=== PATIENT | male | born 1985 | race Caucasian/White ===

== ENCOUNTER → 2021-10-27 12:15 | Outpatient (BNVA) | payer OTHER, SELFPAY | PROVIDERS: Family Provider Nurse Practitioner Family; PCP Nurse Practitioner Family; Visit Provider Nurse Practitioner Family | DX: M25.572 Pain in left ankle and joints of left foot (principal) | CPT/HCPCS: 73610 ==

== ENCOUNTER → 2022-03-12 14:46 | Outpatient (BNVA) | payer OTHER, SELFPAY | PROVIDERS: PCP Nurse Practitioner Family; Visit Provider Nurse Practitioner | DX: N20.0 Calculus of kidney (principal) | CPT/HCPCS: 74018; 81000 ==

== ENCOUNTER → 2024-05-09 09:13 | Outpatient (BNVA) | payer BC, SELFPAY | PROVIDERS: PCP Nurse Practitioner Family; Visit Provider Nurse Practitioner Psychiatric/Mental Health | DX: Z79.899 Other long term (current) drug therapy (principal) | CPT/HCPCS: 80053; 80061; 83036 ==

== ENCOUNTER 2024-09-04 14:50 | Emergency (ER) | payer BC, MEDICAID, SELFPAY ==
[2024-09-04 14:55] VITALS: BP 119/83; PULSE 74; RESP 17; TEMP 36.8; O2SAT 98; BMI 27.9
[2024-09-04 16:03] LABS: Bilirubin Urine Negative (Negative); Blood Urine Negative (Negative); Glucose Urine UA Negative (Normal); Ketones Urine Trace (Negative); Leukocyte Esterase Urine Trace (Negative); Nitrate Urine Negative (Negative); Protein Urine 1+ (Negative); Specific Gravity, Urine 1.026 (1.005-1.030); Urine Appearance Clear (CLEAR); Urine Color Dark Yellow (Yellow); pH Urine 5.5 (5-7)
[2024-09-04 16:05] LABS: Add Urine Microscopic? YES
[2024-09-04 16:11] LABS: Basophils # 0.1 10^3/uL (0.0-0.1); Basophils % 0.8 %; Eosinophils # 0.2 10^3/uL (0.0-0.8); Eosinophils % 1.4 %; Hematocrit 46.5 % (37-53); Mean Corpuscular HGB Conc 34.6 g/dL (30-55); Mean Corpuscular Volume 92.4 fl (82-101); Mean Platelet Volume 9.5 fL (7.4-10.4); Monocytes # 0.7 10^3/uL (0.2-0.9); Monocytes % 6.3 %; Neutrophils # 7.72 10^3/uL (1.8-7.7); Neutrophils % 72.1 %; Nucleated Red Blood Cells % 0 %; Platelet Count 274 10^3/cmm (157-399); Red Blood Count 5.03 10^6/uL (3.85-5.65); Red Cell Distribution Width 11.9 % (12.1-15.1); White Blood Count 10.71 10^3/uL (3.29-11.43)
[2024-09-04 16:29] LABS: Alanine Aminotransferase 10 U/L (0-41); Albumin Level 4.4 g/dL (3.5-5.2); Alkaline Phosphatase 68 U/L (40-130); Aspartate Amino Transferase 13 U/L (0-40); Blood Urea Nitrogen 11 mg/dL (6-20); Calcium 9.1 mg/dL (8.5-10.5); Carbon Dioxide 28 mmol/L (22-29); Chloride 103 mmol/L (98-107); Creatinine Clr Calc Pharmacy 150.0939; Globulin 2.6 g/dL (1.3-4.6); Glomerular Filtration Rate 108.8 mL/min (90-130); Glucose 97 mg/dL (65-115); Lipase 23 U/L (13-60); Osmolality Calculated 289 mOsm/kg (285-295); Sodium 140 mmol/L (136-145); Total Bilirubin 0.5 mg/dL (0.15-1.2)
[2024-09-04 16:39] LABS: Hyaline Casts Urine 0-4 /lpf; RBC Urine 0-4 /hpf (0-2); Squamous Epithelial Cell Urine 0-4 /hpf (0-5); UA Manual Slide Review YES; UA Slide Review UA Slide Review Perf
[2024-09-04 16:44] VITALS: BP 152/89; PULSE 65; O2SAT 98
--- NOTE | 2024-09-04 16:49 | ED_ITS ---
HPI - Abdominal Pain 2 General: Chief Complaint: Abdominal Pain Stated Complaint: left side pain Time Seen by Provider: 09/04/24 16:44 History of Present Illness: 39-year-old male presents emergency room complaining of left flank pain. Is been going on for couple of days. He has had some urgency with urination no jesse hematuria seen in clinic he had no hematuria on the urine sample done at the the clinic. Patient has had episodes of nephrolithiasis in the past and he thinks this feels similar to that. He did have 1 episode in the past where he had to have a stent placed to deal with nephrolithiasis. He denies any fever sweats or chills. Associated Symptoms: Denies chills, dysuria and fever(s) Related Data Previous Rx's Medication Instructions Recorded aripiprazole 2 mg tablet 2 mg PO .q hs #30 tabs 07/04/24 fluoxetine 20 mg capsule 60 mg (3 x 20 mg) PO DAILY #90 caps 07/04/24 ciprofloxacin HCl 250 mg tablet 250 mg PO BID #14 tabs 09/04/24 (Cipro) hydrocodone 5 mg-acetaminophen 325 1 tab PO Q6H PRN pain #7 tabs 09/04/24 mg tablet Allergies Allergy/AdvReac Type Severity Reaction Status Date / Time No Known Allergies Allergy Verified 09/04/24 13:57 Review of Systems 2 Const: Denies: fever(s) or chills Card: Denies: chest pain Resp: Denies: dyspnea GI: Denies: abdominal pain : Reports: urinary frequency and urinary urgency; Denies: dysuria Musc: Denies: neck pain or back pain Skin/Breast: Denies: rash PFS ED 2 PFSH: Medical History (Updated 09/04/24 @ 18:17 by Leonid Esquivel DO) Cannabis use disorder, moderate, dependence Alcohol use disorder, moderate, dependence Psychiatric care Kidney stones Left ankle strain Social History Smoking and tobacco/nicotine status: current every day tobacco/nicotine user Quit status (tobacco/nicotine): not considering quitting Second hand smoke exposure: No Alcohol intake: current Alcohol intake frequency: few times a month Substance/Drug Use: current Substance/Drug use frequency: daily Physical Exam 2 Const: GENERAL APPEARANCE: cooperative ORIENTATION/CONSCIOUSNESS: Yes awake, Yes oriented to person, Yes oriented to place and Yes oriented to time HENMT: COMMON NORMALS: normocephalic, atraumatic and hearing grossly normal bilaterally HEAD & SCALP: normocephalic and atraumatic Resp: COMMON NORMALS: normal respiratory effort, No retractions, No use of accessory muscles and clear to auscultation bilaterally AUSCULTATION: clear to auscultation bilaterally Cardio: COMMON NORMALS: regular rate, regular rhythm and No murmurs present (Cardio) RATE: regular rate RHYTHM: regular rhythm GI: COMMON NORMALS: Soft to palpation and No hepatosplenomegaly present A USCULTATION: Yes normoactive bowel sounds PALPATION: Yes Soft to palpation, No Tenderness to palpation present (GI), No Guarding due to palpation present (GI) and Yes No hepatosplenomegaly present : BLADDER/KIDNEY EXAM: Yes CVA tenderness Back/Pelvis: GENERAL BACK: Yes CVA tenderness CVA tenderness: left Extremity: COMMON NORMALS: normal to inspection, capillary refill normal, no clubbing, cyanosis or edema, no calf tenderness and no pedal edema Neuro: SENSORIUM/ORIENTATION: Yes oriented to person, Yes oriented to place and Yes oriented to time Skin: COMMON NORMALS: no rashes or lesions noted GENERAL SKIN EXAM: no rashes or lesions noted Course 2 Vital Signs: Vital signs: Vital Signs Temperature 98.2 F 09/04/24 14:55 Pulse Rate 65 09/04/24 18:26 Respiratory Rate 17 09/04/24 14:55 Blood Pressure 144/80 09/04/24 18:26 Pulse Oximetry 98 09/04/24 18:26 Oxygen Delivery Me thod Room Air 09/04/24 17:39 MDM - Abdominal Pain Medical Decision Making CT reviewed there is a question of either having just passed a stone or some ureteritis. He does not have significant leukocytosis. He does have some glucose urea with trace leukocyte Estrace. Will start him on the ciprofloxacin. Also give him hydrocodone for pain and recommend that he follows up with urology as soon as he is able. There is a renal pelvis stone that may also be contributing to some of the discomfort. Lab Data 09/04/24 16:06 09/04/24 16:06 Labs/Radiology: Radiology Impressions Abdomen/Pelvis CT 09/04/24 16:53 IMPRESSION: 1. 9 x 7 mm stone in the left renal pelvis associated with upper pole caliectasis suggesting partial obstruction. No significant ureteral dilation or ureteral stones. 2. Mildly patulous distal left ureter with a questionably thickened wall which may be due to ureteritis, recent passage of a stone, or less likely neoplasm. Consider nonemergent follow-up CT urography. Laboratory Results WBC 10.71 10^3/uL (3.29-11.43) 09/04/24 16:06 RBC 5.03 10^6/uL (3.85-5.65) 09/04/24 16:06 Hgb 16.10 g/dL (11.27-16.99) 09/04/24 16:06 Hct 46.5 % (37-53) 09/04/24 16:06 MCV 92.4 fl (82-101) 09/04/24 16:06 MCH 32.0 pg (27-33) 09/04/24 16:06 MCHC 34.6 g/dL (30-55) 09/04/24 16:06 RDW 11.9 % (12.1-15.1) L 09/04/24 16:06 Plt Count 274 10^3/cmm (157-399) 09/04/24 16:06 MPV 9.5 fL (7.4-10.4) 09/04/24 16:06 Neut % (Auto) 72.1 % 09/04/24 16:06 Lymph % (Auto) 19.0 % 09/04/24 16:06 Swain % (Auto) 6.3 % 09/04/24 16:06 Eos % (Auto) 1.4 % 09/04/24 16:06 Baso % (Auto) 0.8 % 09/04/24 16:06 Neut # (Auto) 7.72 10^3/uL (1.8-7.7) H 09/04/24 16:06 Lymph # (Auto) 2.0 10^3/uL (0.8-4.8) 09/04/24 16:06 Swain # (Auto) 0.7 10^3/uL (0.2-0.9) 09/04/24 16:06 Eos # (Auto) 0.2 10^3/uL (0.0-0.8) 09/04/24 16:06 Baso # (Auto) 0.1 10^3/uL (0.0-0.1) 09/04/24 16:06 Nucleated RBC % (auto) 0 % 09/04/24 16:06 Nucleated RBCs # 0.0 /100WBC 09/04/24 16:06 Sodium 140 mmol/L (136-145) 09/04/24 16:06 Potassium 4.0 mmol/L (3.5-5.1) 09/04/24 16:06 Chloride 103 mmol/L (98-107) 09/04/24 16:06 Carbon Dioxide 28 mmol/L (22-29) 09/04/24 16:06 Anion Gap 13.0 (5-19) 09/04/24 16:06 BUN 11 mg/dL (6-20) 09/04/24 16:06 Creatinine 0.8 mg/dL (0.7-1.2) 09/04/24 16:06 GFR Calculation 108.8 mL/min (90-130) 09/04/24 16:06 Glucose 97 mg/dL (65-115) 09/04/24 16:06 Calculated Osmolality 289 mOsm/kg (285-295) 09/04/24 16:06 Calcium 9.1 mg/dL (8.5-10.5) 09/04/24 16:06 Total Bilirubin 0.5 mg/dL (0.15-1.2) 09/04/24 16:06 AST 13 U/L (0-40) 09/04/24 16:06 ALT 10 U/L (0-41) 09/04/24 16:06 Alkaline Phosphatase 68 U/L (40-130) 09/04/24 16:06 Total Protein 7.0 g/dL (6.6-8.7) 09/04/24 16:06 Albumin 4.4 g/dL (3.5-5.2) 09/04/24 16:06 Globulin 2.6 g/dL (1.3-4.6) 09/04/24 16:06 Lipase 23 U/L (13-60) 09/04/24 16:06 Urine Color Dark yellow (Yellow) A 09/04/24 15:03 Urine Appearance Clear (CLEAR) 09/04/24 15:03 Urine pH 5.5 (5-7) 09/04/24 15:03 Ur Specific Bath 1.026 (1.005-1.030) 09/04/24 15:03 Urine Protein 1+ (Negative) A 09/04/24 15:03 Urine Glucose (UA) Negative (Normal) 09/04/24 15:03 Urine Ketones Trace (Negative) 09/04/24 15:03 Urine Blood Negative (Negative) 09/04/24 15:03 Urine Nitrate Negative (Negative) 09/04/24 15:03 Urine Bilirubin Negative (Negative) 09/04/24 15:03 Urine Urobilinogen 1.0 mg/dL (Negative) 09/04/24 15:03 Ur Leukocyte Esterase Trace (Negative) A 09/04/24 15:03 Urine RBC 0-4 /hpf (0-2) H 09/04/24 15:03 Urine WBC 6-10 /hpf (0-5) 09/04/24 15:03 Ur Squamous Epith Cells 0-4 /hpf (0-5) H 09/04/24 15:03 Calcium Oxalate Crystal 10-15 /hpf H 09/04/24 15:03 Amorphous Sediment Not Reportable 09/04/24 15:03 Urine Bacteria None /hpf (NONE) 09/04/24 15:03 Hyaline Casts 0-4 /lpf H 09/04/24 15:03 All radiology interpretation(s) finalized by discharge Discharge Plan Discharge Patient Disposition: Home Clinical Impression: Cystitis, Ureteritis Condition: Stable Prescriptions: New ciprofloxacin HCl [Cipro] 250 mg tablet 250 mg PO BID Qty: 14 0RF hydrocodone-acetaminophen 5-325 mg tablet 1 tab PO Q6H PRN (Reason: pain) Qty: 7 0RF No Action fluoxetine 20 mg capsule 60 mg PO DAILY Qty: 90 2RF Rx Instructions: Take three capsules by mouth every morning; stop 40 mg dose aripiprazole 2 mg tablet 2 mg PO .q hs Qty: 30 2RF Rx Instructions: Take one tablet daily at bedtime Discharge Orders: Discharge ED (Routine); Ordered 09/04/24 Ordered By: Leonid Esquivel Referrals: Tong Chen, HEALTH AND WELLNESS ADVISOR [Primary Care Provider] - Discharge Diet: Usual diet Discharge Activity: Increase activity as tolerated Patient Instructions: Opioid Safety, Pain Management Activity Restrictions/Additional Instructions: Thank you for choosing [facility] for your healthcare needs today. It is very important that you follow up as instructed or that you return to the Emergency Department should you have concerns or if your condition changes or worsens in any way. You were seen in the emergency room for complaints of flank pain. On the CT there is some swelling of the ureter it appears you may have passed the stone or there may be a mild infection her urine did show signs of infection but did not show significant amount of blood. We started you on antibiotics give you pain medication. You should follow-up with your urologist within the next 7 to 10 days to reevaluate this if you continue to have pain you may need further evaluation by urologist. Coding Level of Care Code ED [employer] for Kandice Sue
--- NOTE | 2024-09-04 16:53 | CTR_ITS ---
PROCEDURE INFORMATION: Exam: CT Abdomen And Pelvis Without Contrast Exam date and time: 09/04/2024 5:17 PM Age: 39 years old Clinical indication: Abdominal pain; Flank; Left; Additional info: Flank pain TECHNIQUE: Imaging protocol: Computed tomography of the abdomen and pelvis without contrast. Radiation optimization: All CT scans at this facility use at least one of these dose optimization techniques: automated exposure control; mA and/or kV adjustment per patient size (includes targeted exams where dose is matched to clinical indication); or iterative reconstruction. COMPARISON: CR XR KUB [id number] 03/12/2022 3:08 PM RADIATION DOSE METRICS: Total DLP (mGy-cm): 772.82 FINDINGS: Lungs: Lung bases are clear. Liver: The liver is normal. Gallbladder and biliary ducts: The gallbladder is normal. There is no biliary dilation. Pancreas: The pancreas is unremarkable. Spleen: The spleen is unremarkable. Adrenal glands: The adrenal glands are unremarkable. Kidneys and ureters: There is a 9 x 7 mm stone in the left renal pelvis. There is a 5 x 3 mm stone in left lower pole collecting system. There is mild asymmetric enlargement of the left kidney relative to the right kidney. There is no perinephric edema. There is mild upper pole caliectasis on the left. The left ureter is not significantly. Distally the left ureter is mildly patulous. Urothelial thickening in the distal left ureter is suspected but cannot be confirmed in the absence of IV contrast. No ureteral stones. The right kidney and ureter are unremarkable. Stomach and bowel: The stomach is unremarkable. The small bowel is nondilated. The colon is unremarkable. Appendix: The appendix is normal. Intraperitoneal space: There is no free air or significant intraperitoneal free fluid. Vasculature: The aorta is unremarkable. There is no aneurysm. Lymph nodes: There is no lymphadenopathy in the retroperitoneum, mesentery, pelvis or inguinal regions. Urinary bladder: The urinary bladder is nondistended, limiting assessment of wall thickness. Reproductive: The prostate and seminal vesicles are unremarkable. Bones/joints: The pelvis and hips are unremarkable. Soft tissues: The abdominal wall is intact. CT/CT kidney stone 62330 IMPRESSION: 1. 9 x 7 mm stone in the left renal pelvis associated with upper pole caliectasis suggesting partial obstruction. No significant ureteral dilation or ureteral stones. 2. Mildly patulous distal left ureter with a questionably thickened wall which may be due to ureteritis, recent passage of a stone, or less likely neoplasm. Consider nonemergent follow-up CT urography.
[2024-09-04 17:39] VITALS: BP 144/80; PULSE 65; O2SAT 98
[2024-09-04 18:26] VITALS: BP 144/80; PULSE 65; O2SAT 98
== END 2024-09-04 18:28 | disposition home or self-care (01) ==
PROVIDERS: Emergency Medicine; Emergency Provider Family Medicine; PCP Nurse Practitioner Family
DX: N30.90 Cystitis, unspecified without hematuria (principal); N28.89 Other specified disorders of kidney and ureter; Z72.0 Tobacco use
CPT/HCPCS: 74176; 80053; 81001; 83690; 85025; 99284

== ENCOUNTER 2025-05-14 05:40 | Day surgery (SDC) | payer BC, MEDICAID, SELFPAY ==
[2025-05-14] VITALS (14 sets, daily range): BP systolic 123–155; BP diastolic 77–86; PULSE 85–116; RESP 10–29; TEMP 36.2–36.7; O2SAT 91–99; BMI 29.5
--- NOTE | 2025-05-14 06:40 | W.PM.OPSUD ---
Surgery/Procedure H&P Update DATE OF PROCEDURE: May 14, 2025 DATE H&P PERFORMED: 04/18/25 H&P UPDATE INFORMATION: I have reviewed H&P completed within last 30 days, I have examined patient prior to procedure, No changes to prior documentation, H&P is in [facility] EMR on date indicated and Risks and benefits of the procedure reviewed PREOP DIAGNOSIS: Right inguinal hernia PLANNED PROCEDURE: Operation Date: 05/14/25 07:00 Proposed Procedures p Laparoscopic POSSIBLE OPEN RIGHT Inguinal Hernia Repair w/Mesh 23685 K40.90(Right) - Félix Conrad MD
--- NOTE | 2025-05-14 06:49 | ANES.PREANE2 ---
Pre-Anesthetic Assessment Height/Weight: Height 1.8 m Weight 96.162 kg Temp Pulse Resp BP Pulse Ox O2 Del Method 98.0 F 85 18 128/83 97 Room Air 05/14/25 06:07 05/14/25 06:07 05/14/25 06:07 05/14/25 06:07 05/14/25 06:07 05/14/25 06:07 Preop Diagnosis: Right inguinal hernia Operation Date: 05/14/25 07:00 Proposed Procedures p Laparoscopic POSSIBLE OPEN RIGHT Inguinal Hernia Repair w/Mesh 12310 K40.90(Right) - Félix Conrda MD Familial anesthetic complications: None Was Beta Jc taken within 24 hours: N/A Was Clonidine taken within 24 hours: N/A Last intake: Intake Last Liquid Date 05/14/25 Last Liquid Time 03:00 Last Solid Date 05/13/25 Last Solid Time 21:00 Social Alcohol and Tobacco Exam alert, oriented x 3, clear to auscultation bilaterally and regular rate & rhythm Airway Dentition: chipped Anesthetic Plan ASA status: 1 Anesthesia: General Risk of > 500 ml blood loss (7ml/kg in children): No Medications/Allergies Home Medications ?Medication ?Instructions ?Recorded ?Confirmed ?Last Taken ?Type aripiprazole 2 mg tablet 2 mg PO .q hs #30 tabs 12/18/24 05/10/25 2 Months Ago Rx ~03/14/25 fluoxetine 20 mg capsule 60 mg (3 x 20 mg) PO DAILY #90 caps 12/18/24 05/10/25 2 Months Ago Rx ~03/14/25 Allergies Allergy/AdvReac Type Severity Reaction Status Date / Time No Known Allergies Allergy Verified 05/10/25 12:16 Current Medications Generic Name Dose Route Start Last Admin Trade Name Freq PRN Reason Stop Dose Admin Sodium Chloride 1,000 mls @ 30 mls/hr 05/14/25 06:00 05/14/25 06:33 Sodium Chloride 0.9% IV 05/15/25 05:59 30 mls/hr .Q24H DANTE Administration PFSH Anesthesia Medical History (Updated 04/18/25 @ 11:37 by Félix Conrad MD) Cannabis use disorder, moderate, dependence Alcohol use disorder, moderate, dependence Psychiatric care Kidney stones Left ankle strain Social History (Reviewed 04/18/25 @ 11:01 by SAMMI Singleton Smoking and tobacco/nicotine status: current every day tobacco/nicotine user Quit status (tobacco/nicotine): not considering quitting Second hand smoke exposure: No Alcohol intake: current Alcohol intake frequency: few times a month Substance/Drug Use: current Substance/Drug use frequency: daily
[2025-05-14] MEDS: ceFAZolin 2,000 mg SDV 2000 MG IVP (07:07)
[2025-05-14] MEDS: lidocaine-epi 1% 20 mL INJ 10 ML INJECTION (07:57)
[2025-05-14] MEDS: BUPivacaine 0.25% INJ 30 mL 10 ML INJECTION (07:57)
--- NOTE | 2025-05-14 08:34 | P.OP_ITS ---
Operative Report Date of procedure: May 14, 2025 Pre-op diagnosis: Right inguinal hernia Post-op diagnosis: Indirect right inguinal hernia Post-op findings: There was a small right inguinal hernia, small lipoma of the cord otherwise normal right groin anatomy Procedure done: Laparoscopic right inguinal hernia repair with mesh Implants: Bard medium 3D max mesh Specimens removed/disposition: None Surgeon: Félix Conrad MD [employer] Tech: DEAN OR STaff Estimated blood loss: 10 Complications: none Brief History: This is a 39-year-old male who presented to my office with right groin pain, p hysical examination showed a small right inguinal hernia. Procedure: Patient was brought into the OR, he was placed in a supine position. General anesthesia was given. The abdomen groin was prepped and draped in the usual sterile fashion. A timeout was conducted. I made a 2 cm infraumbilical incision, the incision was deepened until the right anterior rectus sheath was identified. The anterior rectus sheath was opened with electrocautery, the muscle was retracted laterally to expose the retrorectus space. I then advanced a balloon dilator into the retrorectus space and into the pelvis taking care of not using excessive force, the dilator was advanced to the level of the pubic bone and inflated under direct visualization. The preperitoneal space was developed, anatomical structures were identified. The balloon was removed and replaced with a 12 mm trocar. Insufflation was started at 10 mmHg. Initial laparoscopy shows no evidence of active bleeding in the preperitoneal space. Under direct visualization 2 additional 5 mm trocars were placed in the suprapubic and infraumbilical position. I then proceeded to bluntly dissect the preperitoneal space, I was able to visualize the pubic bone and dissected 2 cm lower to this level to allow for proper mesh placement. I was able to visualize the femoral vein and no evidence of right femoral hernia was noted, there was also normal direct inguinal hernia. I then proceeded to develop the lateral space of Borgos I did this bluntly until the psoas muscle was visible. At this point I proceeded to dissect the cord structures, a small indirect sac was identified and dissected from the cord structures, an area about 5 cm from the internal ring was cleared out to ensure no additional inguinal hernia was noted. I then proceeded to produce a small lipoma of the cord. Cord structures appeared healthy and were left undisturbed. I then proceeded to place medium size right sided 3D max mesh into the space. The mesh was laying flat and covering the direct indirect and femoral spaces. I then desufflated the space under direct visualization making sure that the mesh was laying in proper position. The trocars were then removed. Hemostasis was verified. The anterior rectus sheath was closed with #0 Vicryl under direct visualization. The subcutaneous tissue was closed with #3-0 Vicryl and the skin was closed with Monocryl. At the end of the procedure all counts were correct the patient tolerated well the procedure was transferred to the PACU in stable condition.
--- NOTE | 2025-05-14 10:10 | ANE.PACU2 ---
Inpatient post-anesthesia follow up: Airway intact: Yes Vital signs: Temperature 97.9 F Pulse Rate 93 Respiratory Rate 18 Blood Pressure 123/83 Pulse Oximetry 93 Oxygen Delivery Me thod Room Air Oxygen Flow Rate 2 Fraction of Inspir ed Oxygen Hydration adequate: Yes Nausea and vomiting: No Pain level: 1 Mental status: Baseline
--- NOTE | 2025-05-14 10:12 | PC.NURSE ---
Pt offered educational materials on new prescriptions post Sx. Pt refused.
== END 2025-05-14 10:10 | disposition home or self-care (01) ==
PROVIDERS: PCP Nurse Practitioner Family; Visit Provider Surgery
PROC: (CPT 49650; principal; 2025-05-14 07:00)
DX: K40.90 Unilateral inguinal hernia, without obstruction or gangrene, not specified as recurrent (principal); F12.90 Cannabis use, unspecified, uncomplicated; F17.200 Nicotine dependence, unspecified, uncomplicated
CPT/HCPCS: 49650; 51702; A7003; C1781; J0690; J1100; J2250; J2371; J2405; J2704; J3010; J3490; J7030; J7611; J9999

== ENCOUNTER 2025-06-08 08:31 | Emergency (ER) | payer BC, MEDICAID, SELFPAY ==
--- OUTSIDE RECORDS SUMMARY | 2025-06-01 13:40 | XMS_ITS | Encounter Summary ---
Author Organization [facility] Address [address] [place] [address] Care Team Providers Care Watch Electrician Name Role Phone Unavailable Primary Care Provider Unavailabl e Reason for Referral * Eval and Treat (Routine) - Authorized Specialty Diagnoses / Procedures Referred By Kenzie dixon Referred To Contact Urology Diagnoses Left nephrolithiasis Procedures CT OFFICE/OUTPATIENT ESTABLISHED MOD MDM [address] OFFICE/OUTPATIENT NEW MODERATE MDM 45 MINUTES Elin Mallory FNP [address] [facility] [place] [phone] Phone: tel: fax: [facility]rology [address] [place] [phone] Phone: tel: fax: Referral ID Status Reason Start Date Expiration Date V isits Requested Visits Authorized [id number] Authorized 06/01/2025 06/01/2026 1 1 Reason for Visit * Reason Comments Follow Up Referral for Urology Encounter Details Date Type Department Care Team (Latest Contact Info) Description 06/01/2025 1:40 PM CDT Office Visit [facility] Family Medicine Cathryn Carbajal [address] [facility] [address] [facility] [place] [phone] Elin Mallory FNP [address] [facility] [place] [id number] Left nephrolithiasis (Primary Dx); Dental abscess Social History Tobacco Use Types Packs/Day Years Used Date Smoking Tobacco: Every Day Cigarettes Smokeless Tobacco: Former Tobacco Cessation:Ready to Q uit: No; Counseling Given: Yes Alcohol Use Standard Drinks/Week Comments No 0 (1 standard drink = 0.6 oz pur e alcohol) Sex and Gender Information Value Date Recorded Sex Assigned at Not on file Legal Sex Male 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 Gender Identity Not on file Sexual Orientation Not on file documented as of this encounter Last Filed Vital Signs Vital Sign Reading Time Taken Comments Blood Pressure 118/70 06/01/2025 1:41 PM CDT Pulse 122 06/01/2025 1:41 PM CDT Temperature 36.1 C (96.9 F) 06/01/2025 1:41 PM CDT Respiratory Rate 20 06/01/2025 1:41 PM CDT Oxygen Saturation 97% 06/01/2025 1:41 PM CDT Inhaled Oxygen Concentration - - Weight 94 kg (207 lb 3.2 oz) 06/01/2025 1:41 PM CDT Height 175.3 cm (5' 9 ) 06/01/2025 1:41 PM CDT Body Mass Index 30.6 06/01/2025 1:41 PM CDT documented in this encounter Progress Notes * Elin Mallory FNP - 06/01/2025 2:09 PM CDT HISTORY OF PRESENT ILLNESS: Chief Complaint Patient presents with Follow Up Referral for Urology Subjective History of Present Illness The patient is a 39-year-old male who presents to the clinic for a referral request. He reports experiencing pain, which he attributes to a kidney stone that has not yet passed. He expresses concern about the possibility of needing another lithotripsy procedure. He continues to experience left flank pain and suspects the presence of sand-like grains due to a sensation of tension inthe area. He reports no presence of blood in his urine. Additionally, he mentions an abscess located under his lip, which he has been manually draining. Herecalls a previous episode of severe facial swelling, which he believes was due to a sinus infection. The abscess has persisted since then, and he has been attempting to drain it himself. Occupation: Works in care management Living Condition: Lives with his grandmother PAST SURGICAL HISTORY: - Lithotripsy (date not specified) REVIEW OF SYSTEMS Review of Systems Constitutional: Negative for activity change, appetite change, fatigue and fever. HENT: Positive for dental problem. Gastrointestinal: Positive for abdominal pain. Negative for constipation, diarrhea, nausea and vomiting. Genitourinary: Positive for flank pain. Negative for decreased urine volume, difficulty urinating, dysuria, frequency, hematuria and urgency. Musculoskeletal: Negative for arthralgias and myalgias. Skin: Negative for color change. Neurological: Negative for dizziness, weakness, light-headedness and headaches. Objective PHYSICAL EXAM BP 118/70 Pulse (!) 122 Temp 96.9 ??F (36.1 ??C) (Temporal) Resp 20 Ht 5' 9 (1.753 m) Wt94 kg (207 lb 3.2 oz) SpO2 97% BMI 30.60 kg/m?? Physical Exam Vitals reviewed. Constitutional: General: He is not in acute distress. Appearance: Normal appearance. HENT: Head: Normocephalic and atraumatic. Right Ear: External ear normal. Left Ear: External ear normal. Mouth/Throat: Dentition: Dental abscesses present. Eyes: Conjunctiva/sclera: Conjunctivae normal. Pulmonary: Effort: Pulmonary effort is normal. Abdominal: Tenderness: There is left CVA tenderness. Musculoskeletal: Cervical back: Neck supple. Skin: General: Skin is warm. Findings: No rash. Neurological: Mental Status: He is alert and oriented to person, place, and time. Psychiatric: Behavior: Behavior normal. Results ASSESSMENT and PLAN: Orders Placed This Encounter Referral to [facility] [place] - First Available cephALEXin (KEFLEX) 500 mg capsule Assessment & Plan 1. Nephrolithiasis: Persistent. - Referral to a urologist in [place] will be arranged, with [place] as an alternative option. - Increase fluid intake. 2. Oral abscess: Persistent. - Warm compresses recommended to help drain the abscess naturally. - Prescription for Keflex (cephalexin) will be provided. - Monitor for any allergic reactions. - Have Benadryl on hand in case of a rash or other allergic reaction. Follow-up - Referral to a urologist in [place]. LAYNE Richardson, 06/01/2025 2:22 PM The author of this note, patient (or authorized vendor representatives), and all other persons present consent to the audio recording of this visit for charting documentation purposes. This note was automatically generated by a Generative AI technology ([employer]), reviewed, edited, and finalized by LAYNE Richardson. documented in this encounter Plan of Treatment Upcoming Encounters Date Type Department Care Team (Late st Contact Info) Description 07/18/2025 3:00 PM CDT Office Visit [facility]rology [place] [address] [facility] [address] [place] [address] Radha Frank NP [address] [place] [phone] Scheduled Referrals Name Type Priority Associated Diagnoses Orde r Schedule AMB REFERRAL TO UROLOGY Outpatient Referral Routine Left nephrolithiasis Ordered: 06/01/2025 documented as of this encounter Visit Diagnoses Diagnosis Left nephrolithiasis- Primary Dental abscess Periapical abscess without sinus documented in this encounter Additional Health Concerns Assessment Noted Time PHQ-9 Depression Total Score: 2 10/17/19 25 4:16 PM LEAD ACCOUNTANT documented as of this encounter
[2025-06-08 08:33] VITALS: BP 120/75; PULSE 77; TEMP 36.9; O2SAT 97; BMI 32.4
--- OUTSIDE RECORDS SUMMARY | 2025-06-08 08:42 | XMS_ITS | Encounter Summary ---
Author Organization [facility] Address [address] Care Team Providers Care Network Project Manager Name Role Phone Unavailable Primary Care Provider Unavailabl e Encounter Details Date Type Department Care Team (Latest Contact Info) Description 09/05/1999 Outpatient Historical [facility] Family Medicine- Cathryn [address] [place] [phone] Susan Burk NO ADDRESS ON FILE Unspecified otitis media (Primary Dx); Streptococcal sore throat; Acute sinusitis, unspecified Social History Tobacco Use Types Packs/Day Years Used Date Smoking Tobacco: Never Assessed Sex and Gender Information Value Date Recorded Sex Assigned at Not on file 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
--- OUTSIDE RECORDS SUMMARY | 2025-06-08 08:43 | XMS_ITS | Encounter Summary ---
Author Organization [facility] Address [address] [place] [facility] [place] [address] Care Team Providers Care Kettle Room Helper Name Role Phone Unavailable Primary Care Provider Unavailabl e Encounter Details Date Type Department Care Team (Latest Contact Info) Description 03/21/2003 Outpatient Historical [facility] Family Medicine- Cathryn Carb[address] [place] [phone] Jan Buenrostro, DO NO ADDRESS ON FILE FOREIGN BODY IN EAR (Primary Dx); IMPACTED CERUMEN; INFEC OTITIS EXTERNA NOS Social History Tobacco Use Types Packs/Day Years Used Date Smoking Tobacco: Never Assessed Sex and Gender Information Value Date Recorded Sex Assigned at Not on file 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
--- OUTSIDE RECORDS SUMMARY | 2025-06-08 08:43 | XMS_ITS | Encounter Summary ---
Author Organization [facility] Address [address] [facility] [place] [address] Care Team Providers Care Leaf Conditioner Name Role Phone Unavailable Primary Care Provider Unavailabl e Encounter Details Date Type Department Care Team (Latest Contact Info) Description 10/24/1999 Outpatient Historical [facility] Family Medicine- Cathryn Carb[address] [place] [phone] Susan Burk NO ADDRESS ON FILE Sprain of wrist, unspecified site (Primary Dx) Social History Tobacco Use Types Packs/Day Years Used Date Smoking Tobacco: Never Assessed Sex and Gender Information Value Date Recorded Sex Assigned at Not on file Legal Sex Male 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
--- OUTSIDE RECORDS SUMMARY | 2025-06-08 08:43 | XMS_ITS | Encounter Summary ---
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
--- OUTSIDE RECORDS SUMMARY | 2025-06-08 08:43 | XMS_ITS | Encounter Summary ---
Author Organization [facility] Address [address] [place] [facility] [place] [facility] [place] [address] Care Team Providers Care Bank Manager Name Role Phone Unavailable Primary Care Provider Unavailabl e Encounter Details Date Type Department Care Team (Latest Contact Info) Description 03/16/2007 Outpatient Historical [facility] Family Medicine- Cathryn Carb[address] [place] [phone] Krysten Zepeda NP NO ADDRESS ON FILE Acute Sinusitis, Unspecified (Primary Dx); Headache; Diarrhea Social History Tobacco Use Types Packs/Day Years Used Date Smoking Tobacco: Never Assessed Sex and Gender Information Value Date Recorded Sex Assigned at Not on file 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
--- OUTSIDE RECORDS SUMMARY | 2025-06-08 08:43 | XMS_ITS | Encounter Summary ---
Author Organization [facility] Address [address] [place] [address] Care Team Providers Care Test Designer Name Role Phone Unavailable Primary Care Provider Unavailabl e Encounter Details Date Type Department Care Team (Latest Contact Info) Description 05/06/2000 Outpatient Historical [facility] [address] [place] [phone] Susan Burk NO ADDRESS ON FILE Dermatitis due to plant (Primary Dx); Acute sinusitis, unspecified; Dysfunct eustachian tube Social History Tobacco Use Types Packs/Day Years Used Date Smoking Tobacco: Never Assessed Sex and Gender Information Value Date Recorded Sex Assigned at Not on file 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
--- OUTSIDE RECORDS SUMMARY | 2025-06-08 08:43 | XMS_ITS | Encounter Summary ---
Author Organization [facility] Address [address] [place] [facility] [place] [phone] Care Team Providers Care Grain Picker Name Role Phone Unavailable Primary Care Provider Unavailabl e Encounter Details Date Type Department Care Team (Latest Contact Info) Description 01/14/2004 Outpatient Historical [facility] Family Medicine- Cathryn Carb[address] [place] [phone] Kristin Nogueira MD NO ADDRESS ON FILE STREP SORE THROAT (Primary Dx); ATTN DEFICIT W HYPERACT Social History Tobacco Use Types Packs/Day Years Used Date Smoking Tobacco: Never Assessed Sex and Gender Information Value Date Recorded Sex Assigned at Not on file 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
--- OUTSIDE RECORDS SUMMARY | 2025-06-08 08:43 | XMS_ITS | Encounter Summary ---
Author Organization [facility] Address [address] [facility] [place] [address] Care Team Providers Care Middle School Science Teacher Name Role Phone Unavailable Primary Care Provider Unavailabl e Encounter Details Date Type Department Care Team (Latest Contact Info) Description 03/18/1999 Outpatient Historical [facility] Family Medicine- [place] [address] [place], [place] [phone] Jan Buenrostro, DO NO ADDRESS ON FILE Dermatitis due to plant (Primary Dx) Social History Tobacco Use Types Packs/Day Years Used Date Smoking Tobacco: Never Assessed Sex and Gender Information Value Date Recorded Sex Assigned at Not on file Legal Sex Male 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
--- OUTSIDE RECORDS SUMMARY | 2025-06-08 08:43 | XMS_ITS | Clinical Summary ---
Author Organization [facility] Address [address] [place] [address] Care Team Providers Care Supervisor Industrial Arts Education Name Role Phone Unavailable Primary Care Provider Unavailabl e Allergies Active Allergy Reactions Criticality Noted Date Comments Penicillins Unknown 08/10/2008 Medications cephALEXin (KEFLEX) 500 mg capsule Take 1,000 mg by mouth every 12 hours. Active Active Problems Problem Noted Date Diagnosed Date Tobacco use 06/27/2015 Immunizations Immunization Administration Dates Next Due (TDVAX)(7 YRS UP) TETANUS AN D DIPHTHERIA TOXOIDS, ADSORBED (2 LF OF TETANUS TOXOID AND 2 LF OF DIPHTHERIA TOXOID), 0.5ML (PF), IM 08/04/2004,01/16/2003 Hepatitis B Vaccine 01/12/2000,08/18/1999,1998 Influenza Vaccine Split 3+ Yrs IM 08/14/2008 Social History Tobacco Use Types Packs/Day Years Used Date Smoking Tobacco: Every Day Cigarettes Smokeless Tobacco: Current Alcohol Use Standard Drinks/Week Comments No 0 (1 standard drink = 0.6 oz pur e alcohol) Sex and Gender Information Value Date Recorded Sex Assigned at Not on file Legal Sex Male 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 ROOM CLERK Gender Identity Not on file Sexual Orientation Not on file Occupation Industry Job Start Date Job End Date Not on file Not on file Not on file Not on file Last Filed Vital Signs Vital Sign Reading Time Taken Comments Blood Pressure 133/81 11/20/2015 11:50 AM REFRIGERATOR ROOM CLERK Pulse 95 06/27/2015 4:06 PM CDT Temperature 36.3 C (97.3 F) 11/20/2015 11:50 AM REFRIGERATOR ROOM CLERK Respiratory Rate 20 11/20/2015 11:50 AM REFRIGERATOR ROOM CLERK Oxygen Saturation 100% 11/20/2015 11:50 AM REFRIGERATOR ROOM CLERK Inhaled Oxygen Concentration - - Weight 74.8 kg (165 lb) 11/20/2015 11:50 AM REFRIGERATOR ROOM CLERK Height 172.7 cm (5' 8 ) 11/20/2015 11:50 AM REFRIGERATOR ROOM CLERK Body Mass Index 25.09 11/20/2015 11:50 AM REFRIGERATOR ROOM CLERK Plan of Treatment Health Maintenance Due Date Last Done Comments DTAP/TDAP/TD VACCINES (3 - Tdap) 08/05/2004 08/04/20 04, 01/16/2003 HPV VACCINES (1 - 3-dose SCD M series) 2014 INFLUENZA VACCINE (#1) 2025 08/14/2008 HEPATITIS B VACCINES Completed 01/12/2000, 08/18/1999, 06/20/1999 Insurance [employer] PPO
--- OUTSIDE RECORDS SUMMARY | 2025-06-08 08:43 | XMS_ITS | Clinical Summary ---
Author Organization [facility] Address [address] [facility] Attn: Epic Prelude ADT [place] [address] Care Team Providers Care Online Content Coordinator Name Role Phone Unavailable Primary Care Provider Unavailabl e Allergies Active Allergy Reactions Criticality Noted Date Comments Penicillins Unknown 08/10/2008 Medications ARIPiprazole (ABILIFY) 2 mg tablet Take 2 mg by mouth daily. 09/25/2024 Active FLUoxetine (PROzac) 20 mg capsule Take 60 mg by mouth daily. 09/20/2024 Active cephALEXin (KEFLEX) 500 mg capsule Take 1 Capsule (500 mg) by mouth 3 times daily for 10 days. 30 Capsule 06/01/2025 Active Active Problems Problem Noted Date Diagnosed Date Tobacco use 06/27/2015 Encounters Date Type Department Care Team Description 06/01/2025 1:40 PM CDT Office Visit [address] [place] [phone] Elin Mallory FNP Left nephrolithiasis (Primary Dx); Dental abscess 05/29/2025 External Device Data STL ABSTRACTION Provider, Abstract 05/28/[address] [place] [phone] Elin Mallory FNP Appointment Notification 04/12/2025 Telephone [place] [address] [place] [address] Elin Mallory FNP Provider Call; Provider Call 03/30/2025 11:40 AM CDT Office Visit [address] [place] [address] Elin Mallory FNP Non-recurrent unilateral inguinal hernia without obstruction or gangrene (Primary Dx); Left nephrolithiasis 03/26/2025 Results Follow-Up [address] [place] [address] Elin Mallory FNP COMPREHENSIVE METABOLIC PANEL 03/15/2025 11:40 AM CDT Office Visit [address] [place] [address] Elin Mallory FNP Non-recurrent unilateral inguinal hernia without obstruction or gangrene (Primary Dx); 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 03/13/2025 External Device Data STL ABSTRACTION Provider, Abstract from Last 3 Months Immunizations Immunization Administration Dates Next Due (TDVAX)(7 YRS UP) TETANUS AN D DIPHTHERIA TOXOIDS, ADSORBED (2 LF OF TETANUS TOXOID AND 2 LF OF DIPHTHERIA TOXOID), 0.5ML (PF), IM 08/04/2004,01/16/2003 Hepatitis B Vaccine 01/12/2000,08/18/1999,1998 Hepatitis B Vaccine, Unspeci fied Formulation 01/12/2000,08/18/1999,06/20/1999 INFLUENZA VACCINE QUADRIVALE NT 6 MOS UP CELL DERIVED PF IM 07/08/2019 Influenza Vaccine Split 3+ Yrs IM 08/14/2008 [...] on file Legal Sex Male 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 Gender Identity Not on file Sexual Orientation Not on file Last Filed Vital Signs [...] Mass Index 30.6 06/01/2025 1:41 PM CDT Plan of Treatment Upcoming Encounters Date Type Department Care Team (Late st Contact Info) Description 07/18/2025 3:00 PM CDT Office Visit [facility] Urology [place] [address] [place] [address] Radha Frank NP [address] [place] [phone] Health Maintenance Due Date Last Done Comments Pre-Diabetes and Diabetes Screening 1987 DTAP/TDAP/TD VACCINES (3 - Tdap) 08/05/2004 08/04/20 04, 01/16/2003 HPV VACCINES (1 - 3-dose SCD M series) 2014 INFLUENZA VACCINE (#1) 2025 5, 07/08/2019, 08/14/2008 HEPATITIS B VACCINES Completed 01/12/2000, 01/12/2000, 08/18/1999, Additional history exists Abdominal Aortic Aneurysm (A AA) Screening Completed 12/13/2022 Procedures Procedure Name Priority Date/Time Associated Diagnosis Comments COMPREHENSIVE METABOLIC PANEL Routine 03/15/2025 9:35 AM CDT intermediate current use of antipsychotic medication CT ABDOMEN PELVIS WO CONTRAST Stat 12/13/2022 11:33 AM TRUST ACCOUNTS SUPERVISOR from Last 3 Months or Most Recently Relevant to Health Maintenance Results * COMPREHENSIVE METABOLIC PANEL (03/15/2025 9:35 AM CDT) GLUCOSE 92 65 - 99 mg/dL [facility] Comment: Fasting reference interval BUN 12 7 - 25 mg/dL [facility] CREATININE 0.85 0.60 - 1.26 mg/dL [facility] GFR 115 > OR = 60 mL/min/1. 73m2 [facility] BUN/CREAT RATIO SEE NOTE: 6 - 22 (calc) [facility] Comment: Not Reported: BUN and Creatinine are within reference range. SODIUM 142 135 - 146 mmol/L [facility] POTASSIUM 4.1 3.5 - 5.3 mmol/L [facility] CHLORIDE 104 98 - 110 mmol/L [facility] CO2 27 20 - 32 mmol/L [facility] CALCIUM 9.1 8.6 - 10.3 mg/dL [facility] TOTAL PROTEIN 6.5 6.1 - 8.1 g/dL [facility] ALBUMIN 4.3 3.6 - 5.1 g/dL [facility] GLOBULIN 2.2 1.9 - 3.7 g/dL (calc) [facility] ALBUMIN/GLOBULIN RATIO 2.0 1.0 - 2.5 (calc) [facility] BILIRUBIN TOTAL 0.9 0.2 - 1.2 mg/dL [facility] ALKALINE PHOSPHATASE 62 36 - 130 U/L [facility] AST 15 10 - 40 U/L [facility] ALT 14 9 - 46 U/L [facility] Comment: Test Performed at: [facility] [address] [address] Poly Castillo MD Blood 03/15/2025 9:35 AM CDT 03/16/2025 2:54 AM CDT Elin Mallory DERMATOLOGIST AND DERMATOPATHOLOGIST CHEMISTRY ORDERABLES Final Resul t [facility] [phone] [email or web address] [address] [place] [address] * CT ABDOMEN PELVIS WO CONTRAST (12/13/2022 11:33 AM TRUST ACCOUNTS SUPERVISOR) Anatomical Region Laterality Modality Abdomen Computed Tomogra phy 12/13/2022 11:3 4 AM TRUST ACCOUNTS SUPERVISOR Narrative 12/13/2022 11:46 AM TRUST ACCOUNTS SUPERVISOR Exam: CT ABDOMEN PELVIS WO CONTRAST Date/Time of Exam: 12/13/2022 11:33 AM Reason For Exam: Flank pain, kidney stone suspected. Diagnosis: See Reason for Exam. Technique: CT of the abdomen and pelvis was performed without the administration of intravenous contrast. Comparison: None. Findings: Lower chest: The heart size is normal with small pericardial effusion. The lung bases are clear. ABDOMEN: The liver is normal in size and contour without focal lesion. No calcified gallstones or biliary ductal dilatation. The uninfused appearance of the pancreas, spleen, and adrenal glands is normal. There are multiple renal calyceal calculi with largest calculus measuring 7 mm in the lower pole of the left kidney. No hydronephrosis or perinephric stranding. The small bowel caliber is normal. Slight wall thickening of the terminal ileum likely relates to prior inflammation. The appendix is not dilated. No free intraperitoneal air or fluid. Pelvis: There is a 7 x 4 mm calculus in the left pelvis which appears to be within the distal ureter. This is nonobstructive. Calcifications are present in the prostate gland. No free fluid or significant inguinal hernia. Vascular: Within normal limits. MUSCULOSKELETAL: No aggressive appearing osseous lesion or acute fracture. ++++++++++++++++++++ IMPRESSION 7 x 4 mm distal left ureteral calculus without hydronephrosis. Multiple additional calyceal calculi noted bilaterally. Procedure Note Edu Dueñas MD - 12/13/2022 Exam: CT ABDOMEN PELVIS WO CONTRAST Date/Time of Exam: 12/13/2022 11:33 AM Reason For Exam: Flank pain, kidney stone suspected. Diagnosis: See Reason for Exam. Technique: CT of the abdomen and pelvis was performed without the administration of intravenous contrast. Comparison: None. Findings: Lower chest: The heart size is normal with small pericardial effusion. The lung bases are clear. ABDOMEN: The liver is normal in size and contour without focal lesion. No calcified gallstones or biliary ductal dilatation. The uninfused appearance of the pancreas, spleen, and adrenal glands is normal. There are multiple renal calyceal calculi with largest calculus measuring 7 mm in the lower pole of the left kidney. No hydronephrosis or perinephric stranding. The small bowel caliber is normal. Slight wall thickening of the terminal ileum likely relates to prior inflammation. The appendix is not dilated. No free intraperitoneal air or fluid. Pelvis: There is a 7 x 4 mm calculus in the left pelvis which appears to be within the distal ureter. This is nonobstructive. Calcifications are present in the prostate gland. No free fluid or significant inguinal hernia. Vascular: Within normal limits. MUSCULOSKELETAL: No aggressive appearing osseous lesion or acute fracture. ++++++++++++++++++++ IMPRESSION 7 x 4 mm distal left ureteral calculus without hydronephrosis. Multiple additional calyceal calculi noted bilaterally. Eduardo Solano II, MD CT ORDERABLES Falguni l Result from Last 3 Months or Most Recently Relevant to Health Maintenance Insurance [facility] MEDICAID
--- OUTSIDE RECORDS SUMMARY | 2025-06-08 08:43 | XMS_ITS | Encounter Summary ---
Author Organization [facility] Address [address] [place] [address] Care Team Providers Care Electrical Technician Name Role Phone Unavailable Primary Care Provider Unavailabl e Encounter Details Date Type Department Care Team (Latest Contact Info) Description 03/20/2003 Outpatient Historical [facility] Family Medicine- [place] [address] [place] [phone] Jan Buenrostro, NO ADDRESS ON FILE INFEC OTITIS EXTERNA NOS (Primary Dx); IMPACTED CERUMEN Social History Tobacco Use Types Packs/Day Years Used Date Smoking Tobacco: Never Assessed Sex and Gender Information Value Date Recorded Sex Assigned at Not on file 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
--- OUTSIDE RECORDS SUMMARY | 2025-06-08 08:43 | XMS_ITS | Encounter Summary ---
Author Organization [facility] Address [address] [place] [facility] [place] [address] Care Team Providers Care Wan Support Specialist Name Role Phone Unavailable Primary Care Provider Unavailabl e Encounter Details Date Type Department Care Team (Latest Contact Info) Description 12/05/2004 Outpatient Historical [facility] Family Medicine- [place] [place] [phone] Kristin Nogueira MD NO ADDRESS ON FILE ACUTE PHARYNGITIS (Primary Dx); ACUTE BRONCHITIS Social History Tobacco Use Types Packs/Day Years Used Date Smoking Tobacco: Never Assessed Sex and Gender Information Value Date Recorded Sex Assigned at Not on file 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
--- OUTSIDE RECORDS SUMMARY | 2025-06-08 08:43 | XMS_ITS | Encounter Summary ---
Author Organization [facility] Address [address] [place] [facility] [place] [address] Care Team Providers Care Booker Name Role Phone Unavailable Primary Care Provider Unavailabl e Encounter Details Date Type Department Care Team (Latest Contact Info) Description 04/23/2000 Outpatient Historical [facility] Family Medicine- [place] [place] [phone] Jan Buenrostro, NO ADDRESS ON FILE Acute tonsillitis (Primary Dx) Social History Tobacco Use Types Packs/Day Years Used Date Smoking Tobacco: Never Assessed Sex and Gender Information Value Date Recorded Sex Assigned at Not on file 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
--- OUTSIDE RECORDS SUMMARY | 2025-06-08 08:43 | XMS_ITS | Encounter Summary ---
Author Organization [facility] Address [address] [place] [facility] [place] [address] Care Team Providers Care Warp Spooler Name Role Phone Unavailable Primary Care Provider Unavailabl e Encounter Details Date Type Department Care Team (Latest Contact Info) Description 06/15/[address] 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
--- OUTSIDE RECORDS SUMMARY | 2025-06-08 08:43 | XMS_ITS | Encounter Summary ---
Author Organization [facility] Address [address] [place] [facility] [place] [address] Care Team Providers Care Enterprise Application Architect Name Role Phone Unavailable Primary Care Provider Unavailabl e Encounter Details Date Type Department Care Team (Latest Contact Info) Description 02/28/1999 Outpatient Historical [facility] Family Medicine- [place] [place] [phone] Susan Burk NO ADDRESS ON FILE Conjunctivitis unspecified (Primary Dx) Social History Tobacco Use Types Packs/Day Years Used Date Smoking Tobacco: Never Assessed Sex and Gender Information Value Date Recorded Sex Assigned at Not on file 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
--- OUTSIDE RECORDS SUMMARY | 2025-06-08 08:43 | XMS_ITS | Encounter Summary ---
Author Organization [facility] Address [address] [place] [facility] [place] [address] Care Team Providers Care Railcar Carpenter Name Role Phone Unavailable Primary Care Provider Unavailabl e Encounter Details Date Type Department Care Team (Latest Contact Info) Description 11/02/2001 Outpatient Historical [facility] Family Medicine- [place] [address] [place] [address] Chuck Fatima MD [address] [facility] [address] [place] [phone] ABDOMINAL PAIN UNSPEC SITE (Primary Dx) Social History Tobacco Use Types Packs/Day Years Used Date Smoking Tobacco: Never Assessed Sex and Gender Information Value Date Recorded Sex Assigned at Not on file 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
--- OUTSIDE RECORDS SUMMARY | 2025-06-08 08:43 | XMS_ITS | Encounter Summary ---
Author Organization [facility] Address [address] [facility] [address] Care Team Providers Care Behavioral Health Care Manager Name Role Phone Unavailable Primary Care Provider Unavailabl e Encounter Details Date Type Department Care Team (Latest Contact Info) Description 04/07/2002 Outpatient Historical [facility] Family Medicine- [place] [address] [place] [phone] Kristin Nogueira MD NO ADDRESS ON FILE DERMATITIS NOS (Primary Dx) Social History Tobacco Use Types Packs/Day Years Used Date Smoking Tobacco: Never Assessed Sex and Gender Information Value Date Recorded Sex Assigned at Not on file Legal Sex Male 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
--- OUTSIDE RECORDS SUMMARY | 2025-06-08 08:43 | XMS_ITS | Encounter Summary ---
Author Organization [facility] Address [address] [place] [facility] [place] [address] Care Team Providers Care Tool Chaser Name Role Phone Unavailable Primary Care Provider Unavailabl e Encounter Details Date Type Department Care Team (Latest Contact Info) Description 04/18/2001 Outpatient Historical [facility] Family Medicine- [place] [address] [place] [address] Chuck Fatima MD [address] [facility] [address] [place] [phone] Acute pharyngitis (Primary Dx); Infective otitis externa, unspecified Social History Tobacco Use Types Packs/Day Years Used Date Smoking Tobacco: Never Assessed Sex and Gender Information Value Date Recorded Sex Assigned at Not on file 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
--- OUTSIDE RECORDS SUMMARY | 2025-06-08 08:43 | XMS_ITS | Encounter Summary ---
Author Organization [facility] Address [address] [place] [address] Care Team Providers Care Industrial Manufacturing Technician Name Role Phone Unavailable Primary Care Provider Unavailabl e Encounter Details Date Type Department Care Team (Latest Contact Info) Description 11/26/1998 Outpatient Historical [facility] Family Medicine [place] [address] [facility] [address] [place] [phone] Chuck Fatima MD [address] [facility] [address] [place] [address] Dysfunct eustachian tube (Primary Dx); Acute sinusitis, unspecified Social History Tobacco Use Types Packs/Day Years Used Date Smoking Tobacco: Never Assessed Sex and Gender Information Value Date Recorded Sex Assigned at Not on file 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
--- OUTSIDE RECORDS SUMMARY | 2025-06-08 08:43 | XMS_ITS | Encounter Summary ---
Author Organization [facility] Address [address] [facility] [place] [address] Care Team Providers Care Fuel Cell Binder Name Role Phone Unavailable Primary Care Provider Unavailabl e Encounter Details Date Type Department Care Team (Late st Contact Info) Description 11/08/2007 Outpatient Historical [facility] Family Medicine- [place] [address] [place] [phone] Krysten Zepeda, DERIAN NO ADDRESS ON FILE Social History Tobacco Use Types Packs/Day Years Used Date Smoking Tobacco: Never Assessed Sex and Gender Information Value Date Recorded Sex Assigned at Not on file 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
--- OUTSIDE RECORDS SUMMARY | 2025-06-08 08:43 | XMS_ITS | Encounter Summary ---
Author Organization [facility] Address [address] [place] [address] Care Team Providers Care Chef De Cuisine Name Role Phone Shad Kauffman LAYNE Primary Care Provider Reason for Visit * Reason Comments Information Encounter Details Date Type Department Care Team (Late st Contact Info) Description 11/01/2024 Telephone [facility] Family Medicine [address] [place] [phone] Elin Mallory FNP [address] [facility] [place] [address] Information Social History Tobacco Use Types Packs/Day Years Used Date Smoking Tobacco: Every Day Cigarettes Smokeless Tobacco: Former Alcohol Use Standard Drinks/Week Comments No 0 (1 standard drink = 0.6 oz pur e alcohol) Sex and Gender Information Value Date Recorded Sex Assigned at Not on file Legal Sex Male 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 Kaley Arias, 11/06/2024 9:20 AM RGROUND BOLTING MACHINE OPERATOR * Telephone Encounter - Christy Jaimes RN - 11/02/2024 10:02 AM CST Patient had CT ordered on kidneys and did not complete. Discussing with provider on to reorder CT or MRI. RGROUND BOLTING MACHINE OPERATOR * Telephone Encounter - Veronica Betancur RN - 11/01/2024 2:49 PM UNDERGROUND BOLTING MACHINE OPERATOR 11/01/2024 2:49 PM Returned call and spoke with patient. Discussed that patient is having kidney pain again and was wanting MRI. Voiced understanding. Veronica RN RGROUND BOLTING MACHINE OPERATOR * Telephone Encounter - Madina Aburto - 11/01/2024 2:40 PM CST Copied from [facility] #[id number]. Topic: Patient or Caregiver Communication Request >> Nov 01, 2024 2:38 PM Madina Cota wrote: Patient or Caregiver requesting advice Caller: Phong Wolff Patient/Caregiver Callback Number: [phone] (home) Call Notes: Patient is requesting that the MRI be sent in for his knee, its still hurting patient. Please advise RGROUND BOLTING MACHINE OPERATOR documented in this encounter Plan of Treatment Upcoming Encounters Date Type Department Care Team (Late st Contact Info) Description 07/18/2025 3:00 PM CDT Office Visit [facility] Urology [place] [address] [facility] [address] [place] [phone] Radha Frank NP [address] [place] [address] documented as of this encounter Visit Diagnoses Not on filedocumented in this encounter Additional Health Concerns Assessment Noted Time PHQ-9 Depression Total Score: 2 10/17/19 25 4:16 PM UNDERGROUND BOLTING MACHINE OPERATOR documented as of this encounter Care Teams Chef De Cuisine Relationship Specialty Start Date End Date Shad Kauffman FNP [address] [place] [phone] PCP - General Nurse Practitioner Family 09/01/2103/11 documented as of this encounter
--- OUTSIDE RECORDS SUMMARY | 2025-06-08 08:43 | XMS_ITS | Encounter Summary ---
Author Organization [facility] Address [address] [place] [address] Care Team Providers Care Breast Worker Name Role Phone Unavailable Primary Care Provider Unavailabl e Encounter Details Date Type Department Care Team (Latest Contact Info) Description 11/10/2006 Outpatient Historical [facility]- [address] [phone] [place] NO ADDRESS ON FILE Acute Upper Respiratory Infections of Unspecified Site (Primary Dx) Social History Tobacco Use Types Packs/Day Years Used Date Smoking Tobacco: Never Assessed Sex and Gender Information Value Date Recorded Sex Assigned at Not on file 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
--- OUTSIDE RECORDS SUMMARY | 2025-06-08 08:43 | XMS_ITS | Encounter Summary ---
Author Organization [facility] Address [address] [place] [facility] [place] [address] Care Team Providers Care Utilization Management Nurse Name Role Phone Unavailable Primary Care Provider Unavailabl e Encounter Details Date Type Department Care Team (Latest Contact Info) Description 03/02/2001 Outpatient Historical [facility] Family Medicine- [place] [address] [place] [phone] Jan Buenrostro, NO ADDRESS ON FILE Acute pharyngitis (Primary Dx); Acute sinusitis, unspecified Social History Tobacco Use Types Packs/Day Years Used Date Smoking Tobacco: Never Assessed Sex and Gender Information Value Date Recorded Sex Assigned at Not on file Legal Sex Male 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
--- OUTSIDE RECORDS SUMMARY | 2025-06-08 08:43 | XMS_ITS | Encounter Summary ---
Author Organization [facility] Address [address] [facility] [place] [address] Care Team Providers Care Construction Site Manager Name Role Phone Unavailable Primary Care Provider Unavailabl e Encounter Details Date Type Department Care Team (Latest Contact Info) Description 04/25/[address] 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
--- OUTSIDE RECORDS SUMMARY | 2025-06-08 08:43 | XMS_ITS | Encounter Summary ---
Author Organization [facility] Address [address] [place] [address] Care Team Providers Care Adobe Layer Helper Name Role Phone Unavailable Primary Care Provider Unavailabl e Reason for Visit * Reason Comments Provider Call Provider Call Encounter Details Date Type Department Care Team (Late st Contact Info) Description 04/12/2025 Telephone [facility] Family Medicine [place] [address] [place] [address] [place] [address] [place] [phone] Elin Mallory FNP [address] [facility] [place] [address] Provider Call; Provider Call Social History Tobacco Use Types Packs/Day Years Used Date Smoking Tobacco: Every Day Cigarettes Smokeless Tobacco: Former Alcohol Use Standard Drinks/Week Comments No 0 (1 standard drink = 0.6 oz pur e alcohol) Sex and Gender Information Value Date Recorded Sex Assigned at Not on file 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 Kaley Arias, 04/12/2025 3:13 PM * Telephone Encounter - Deloris Kraus - 04/12/2025 3:09 PM CDT Copied from [facility] #[id number]. Topic: [id number] Call >> Apr 12, 2025 3:06 PM Deloris Verde wrote: Caller is requesting to speak with Clinical Care Team. [facility] Call[facility] Number: [phone] Clinician Type: Other healthcare professional not listed above Call Notes: Calling regarding the imaging report from the CT scan as it was not received. Please send results to fax: [phone]. Is this addressing an immediate patient care need? No * Telephone Encounter - Kaley Arias - 04/12/2025 12:16 PM CDT 04/12/2025 12:16 PM Faxed imaging report. Kaley Arias, 04/12/2025 12:16 PM * Telephone Encounter - Nolvia Canchola - 04/12/2025 11:14 AM CDT Copied from [facility] #[id number]. Topic: [id number] Call >> Apr 12, 2025 11:07 AM Nolvia Teixeira wrote: Caller is requesting to speak with Clinical Care Team. Caller Name: Aruna Roman [facility] Callback Number: [phone] Clinician Type: Other healthcare professional not listed above Call Notes: Insurance is denying the ordered CT Scan because he has recently had one; advised it was done on 02/19/2025. Please send results to fax: [phone]. Is this addressing an immediate patient care need? No documented in this encounter Plan of Treatment Upcoming Encounters Date Type Department Care Team (Late st Contact Info) Description 07/18/2025 3:00 PM CDT Office Visit [place] [address] [facility] [address] [place] [address] Radha Frank NP [address] [facility] [address] [place] [address] documented as of this encounter Visit Diagnoses Not on filedocumented in this encounter Additional Health Concerns Assessment Noted Time PHQ-9 Depression Total Score: 2 10/17/19 25 4:16 PM WORKING MANAGER documented as of this encounter
--- OUTSIDE RECORDS SUMMARY | 2025-06-08 08:43 | XMS_ITS | Encounter Summary ---
Author Organization [facility] Address [address] [place] [address] Care Team Providers Care Banquet Line Cook Name Role Phone Unavailable Primary Care Provider Unavailabl e Encounter Details Date Type Department Care Team (Latest Contact Info) Description 10/02/[address] 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
--- OUTSIDE RECORDS SUMMARY | 2025-06-08 08:43 | XMS_ITS | Encounter Summary ---
Author Organization [facility] Address [address] [place] [facility] [place] [address] Care Team Providers Care Core Laying Machine Operator Name Role Phone Unavailable Primary Care Provider Unavailabl e Encounter Details Date Type Department Care Team (Latest Contact Info) Description 04/12/2001 Outpatient Historical [facility] Family Medicine- [place] [address] [place] [address] Chuck Fatima MD [address] [facility] [address] [place] [phone] Dermatitis due to plant (Primary Dx) Social History Tobacco Use Types Packs/Day Years Used Date Smoking Tobacco: Never Assessed Sex and Gender Information Value Date Recorded Sex Assigned at Not on file 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
--- OUTSIDE RECORDS SUMMARY | 2025-06-08 08:43 | XMS_ITS | Encounter Summary ---
Author Organization [facility] Address [address] [place] [facility] [place] [address] Care Team Providers Care Ranch Hand Name Role Phone Unavailable Primary Care Provider Unavailabl e Encounter Details Date Type Department Care Team (Latest Contact Info) Description 08/25/2000 Outpatient Historical [facility] Family Medicine- [place] [address] [place] [address] Chuck Fatima MD [address] [facility] [address] [place] [phone] Unspecified sinusitis (chronic) (Primary Dx); Acute pharyngitis Social History Tobacco Use Types Packs/Day Years Used Date Smoking Tobacco: Never Assessed Sex and Gender Information Value Date Recorded Sex Assigned at Not on file 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
--- OUTSIDE RECORDS SUMMARY | 2025-06-08 08:43 | XMS_ITS | Encounter Summary ---
Author Organization [facility] Address [address] [facility] [place] [address] Care Team Providers Care Client Portfolio Manager Name Role Phone Unavailable Primary Care Provider Unavailabl e Encounter Details Date Type Department Care Team (Latest Contact Info) Description 09/14/[address] 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
--- OUTSIDE RECORDS SUMMARY | 2025-06-08 08:43 | XMS_ITS | Encounter Summary ---
Author Organization [facility] Address [address] [facility] [place] [address] Care Team Providers Care Business Analytics Analyst Name Role Phone Unavailable Primary Care Provider Unavailabl e Encounter Details Date Type Department Care Team (Latest Contact Info) Description 02/07/1999 Outpatient Historical [facility] Family Medicine- [place] [address] [place] [phone] Susan Burk NO ADDRESS ON FILE Acute bronchitis (Primary Dx); Acute sinusitis, unspecified Social History Tobacco Use Types Packs/Day Years Used Date Smoking Tobacco: Never Assessed Sex and Gender Information Value Date Recorded Sex Assigned at Not on file 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
--- NOTE | 2025-06-08 08:58 | W.ED.MALEGU ---
HPI - Male Genitourinary General: Chief complaint: Urogenital-Male Stated complaint: flank pain Time Seen by Provider: 06/08/25 08:57 Source: patient Mode of arrival: ambulatory Limitations: no limitations History of Present Illness: Patient is a 40-year-old male who presents to ED today for complaint of left-sided back and abdominal pain. He states pain has been present for 2 years but states he got severe yesterday and into today thus prompting his medical evaluation. He states he has a known left chronic ureter stone that is large. He states he is scheduled for lithotripsy on July 18 in [place]. He states he has never seen a urologist in [place] so I am not sure how this procedure got scheduled. He is not complaining of hematuria, dysuria, frequency/urgency. No vomiting or fevers. MD Complaint: other (back/abdominal pain) Onset (ago): year(s) Duration: constant Severity: moderate Relieving factors: none Exacerbating factors: none Associated symptoms: Reports nausea; Deny dysuria or vomiting Related Data Previous Rx's ?Medication ?Instructions ?Recorded aripiprazole 2 mg tablet 2 mg PO .q hs #30 tabs 12/18/24 fluoxetine 20 mg capsule 60 mg (3 x 20 mg) PO DAILY #90 caps 12/18/24 hydrocodone 5 mg-acetaminophen 325 1 tab PO Q6H PRN pain #8 tabs 06/08/25 mg tablet Allergies Allergy/AdvReac Type Severity Reaction Status Date / Time No Known Allergies Allergy Verified 06/08/25 08:37 Review of Systems Const: Denies: fever(s), chills, body aches, fatigue or malaise Card: Denies: chest pain Resp: Denies: dyspnea GI: Reports: abdominal pain and nausea; Denies: vomiting, diarrhea or change in bowel habits : Reports: flank pain; Denies: difficulty urinating, dysuria, urinary frequency, urinary urgency or urinary hesitancy Musc: Reports: back pain; Denies: neck pain, extremity pain, extremity swelling, joint pain, joint swelling or joint redness Skin/Breast: Denies: rash Neuro: Denies: headache(s), numbness in extremities, weakness in extremities, sensory changes or dizziness [facility] ED PFSH: Medical History Cannabis use disorder, moderate, dependence Alcohol use disorder, moderate, dependence Psychiatric care Kidney stones Left ankle strain Social History Smoking and tobacco/nicotine status: current every day tobacco/nicotine user Quit status (tobacco/nicotine): not considering quitting Second hand smoke exposure: No Alcohol intake: current Alcohol intake frequency: few times a month Substance/Drug Use: current Substance/Drug use frequency: daily Physical Exam Const: COMMON NORMALS: no acute distress, average body habitus, patient oriented x3, no limitations, healthy appearing, alert and well nourished GENERAL APPEARANCE: cooperative ORIENTATION/CONSCIOUSNESS: Yes awake, Yes oriented to person, Yes oriented to place and Yes oriented to time Resp: COMMON NORMALS: normal respiratory effort and clear to auscultation bilaterally AUSCULTATION: clear to auscultation bilaterally Cardio: COMMON NORMALS: regular rate and regular rhythm RATE: regular rate RHYTHM: regular rhythm GI: COMMON NORMALS: Normal to inspection, nondistended, normoactive bowel sounds present, Soft to palpation, No hepatosplenomegaly present and no masses INSPECTION: Yes normal to inspection AUSCULTATION: Yes normoactive bowel sounds PALPATION: Yes Soft to palpation, Yes Tenderness to palpation present (GI) (L lower abdomen), No Guarding due to palpation present (GI), No Rigid due to palpation and Yes No hepatosplenomegaly present : BLADDER/KIDNEY EXAM: Yes CVA tenderness on the left Back/Pelvis: COMMON NORMALS: thoracic and lumbar spine normal to inspection and no thoracic nor lumbar tenderness GENERAL BACK: Yes CVA tenderness Extremity: GENERAL: Yes normal exam except as noted Neuro: COMMON NORMALS: patient oriented x3, moves all extremities, no focal motor deficits and no sensory deficits noted SENSORIUM/ORIENTATION: Yes alert, Yes oriented to person, Yes oriented to place and Yes oriented to time Skin: COMMON NORMALS: no rashes or lesions noted GENERAL SKIN EXAM: no rashes or lesions noted Course Vital Signs: Vital signs: Vital Signs Temperature 98.5 F 06/08/25 08:33 Pulse Rate 62 06/08/25 10:00 Blood Pressure 102/60 06/08/25 10:00 Pulse Oximetry 96 06/08/25 10:00 Oxygen Delivery Me thod Room Air 06/08/25 10:00 MDM - Male Medical Decision Making Patient is pain-free on re-examination. His vital signs are stable. Blood work showing a normal white count. UA is not suspicious for infection. He is not having UTI-like symptoms. Will go ahead and culture CT scan showing his known left renal pelvic calculus measuring 13 mm with likely partial or intermittent obstruction that could explain his symptoms. This sounds like the same symptoms he has had intermittently x 2 years. He is scheduled for lithotripsy July 18. Recommend he keep this appointment. Return precautions discussed. Medical Records I reviewed the patient's medical records. Lab Data I reviewed the patient's lab results. 06/08/25 08:39 06/08/25 08:39 Radiology Impressions Abdomen/Pelvis CT 06/08/25 09:18 IMPRESSION: 1. LEFT renal pelvic calculus measuring 13 mm with likely partial or intermittent obstruction. Mild pelvicaliectasis with slight induration about the LEFT kidney. Similar appearing renal pelvic calculus seen on the prior study in 2023. 2. No hydronephrosis in the RIGHT kidney. 3. Diffuse bladder wall thickening with mild surrounding induration suspicious for cystitis. Recommend correlation for UTI 4. Mild prostate enlargement with calcification. 5. Small fat-containing umbilical hernia. 6. A few wispy groundglass infiltrates in the LEFT lower lobe likely inflammatory. 7. Induration along the RIGHT inguinal canal from recent reported hernia repair Notified NICHOLAS Burroughs at 06/08/2025 10:06 AM. Laboratory Results WBC 7.33 10^3/uL (3.29-11.43) 06/08/25 08:39 RBC 4.93 10^6/uL (3.85-5.65) 06/08/25 08:39 Hgb 15.60 g/dL (11.27-16.99) 06/08/25 08:39 Hct 45.1 % (37-53) 06/08/25 08:39 MCV 91.5 fl (82-101) 06/08/25 08:39 MCH 31.6 pg (27-33) 06/08/25 08:39 MCHC 34.6 g/dL (30-55) 06/08/25 08:39 RDW 11.5 % (12.1-15.1) L 06/08/25 08:39 Plt Count 255 10^3/cmm (157-399) 06/08/25 08:39 MPV 9.7 fL (7.4-10.4) 06/08/25 08:39 Neut % (Auto) 68.6 % 06/08/25 08:39 Lymph % (Auto) 20.9 % 06/08/25 08:39 Dare % (Auto) 6.1 % 06/08/25 08:39 Eos % (Auto) 3.0 % 06/08/25 08:39 Baso % (Auto) 0.7 % 06/08/25 08:39 Neut # (Auto) 5.03 10^3/uL (1.8-7.7) 06/08/25 08:39 Lymph # (Auto) 1.5 10^3/uL (0.8-4.8) 06/08/25 08:39 Dare # (Auto) 0.5 10^3/uL (0.2-0.9) 06/08/25 08:39 Eos # (Auto) 0.2 10^3/uL (0.0-0.8) 06/08/25 08:39 Baso # (Auto) 0.1 10^3/uL (0.0-0.1) 06/08/25 08:39 Nucleated RBC % (auto) 0 % 06/08/25 08:39 Nucleated RBCs # 0.0 /100WBC 06/08/25 08:39 Sodium 143 mmol/L (136-145) 06/08/25 08:39 Potassium 4.4 mmol/L (3.5-5.1) 06/08/25 08:39 Chloride 105 mmol/L (98-107) 06/08/25 08:39 Carbon Dioxide 26 mmol/L (22-29) 06/08/25 08:39 Anion Gap 16.4 (5-19) 06/08/25 08:39 BUN 14 mg/dL (6-20) 06/08/25 08:39 Creatinine 0.8 mg/dL (0.7-1.2) 06/08/25 08:39 GFR Calculation 108.2 mL/min (90-130) 06/08/25 08:39 Glucose 93 mg/dL (65-115) 06/08/25 08:39 Calculated Osmolality 296 mOsm/kg (285-295) H 06/08/25 08:39 Calcium 9.2 mg/dL (8.5-10.5) 06/08/25 08:39 Total Bilirubin 0.6 mg/dL (0.15-1.2) 06/08/25 08:39 AST 11 U/L (0-40) 06/08/25 08:39 ALT 12 U/L (0-41) 06/08/25 08:39 Alkaline Phosphatase 63 U/L (40-130) 06/08/25 08:39 Total Protein 6.8 g/dL (6.6-8.7) 06/08/25 08:39 Albumin 4.2 g/dL (3.5-5.2) 06/08/25 08:39 Globulin 2.6 g/dL (1.3-4.6) 06/08/25 08:39 Urine Color Yellow (Yellow) 06/08/25 08:40 Urine Appearance Clear (CLEAR) 06/08/25 08:40 Urine pH 5.5 (5-7) 06/08/25 08:40 Ur Specific Dent 1.029 (1.005-1.030) 06/08/25 08:40 Urine Protein 1+ (Negative) A 06/08/25 08:40 Urine Glucose (UA) Negative (Normal) 06/08/25 08:40 Urine Ketones 1+ (Negative) H 06/08/25 08:40 Urine Blood Trace (Negative) A 06/08/25 08:40 Urine Nitrate Negative (Negative) 06/08/25 08:40 Urine Bilirubin Negative (Negative) 06/08/25 08:40 Urine Urobilinogen 1.0 mg/dL (Negative) 06/08/25 08:40 Ur Leukocyte Esterase 1+ (Negative) A 06/08/25 08:40 Urine RBC 3-5 /hpf (0-2) 06/08/25 08:40 Urine WBC 6-10 /hpf (0-5) 06/08/25 08:40 Ur Squamous Epith Cells 0-5 /hpf (0-5) 06/08/25 08:40 Amorphous Sediment Not Reportable 06/08/25 08:40 Urine Bacteria None seen /hpf (NONE) 06/08/25 08:40 Hyaline Casts 0.81 /lpf 06/08/25 08:40 All radiology interpretation(s) finalized by discharge Discharge Plan Discharge Patient Disposition: Home Clinical Impression: Calculus of renal pelvis Condition: Stable Prescriptions: New hydrocodone-acetaminophen 5-325 mg tablet 1 tab PO Q6H PRN (Reason: pain) Qty: 8 0RF No Action aripiprazole 2 mg tablet 2 mg PO .q hs Qty: 30 2RF fluoxetine 20 mg capsule 60 mg PO DAILY Qty: 90 2RF Discharge Orders: Discharge ED (Routine); Ordered 06/08/25 Ordered By: Sue Brown Referrals: Tong Chen FNP [Primary Care Provider, Family Practice] Patient Instructions: Opioid Safety, Pain Management, Patient Portal & [place] Instructions Activity Restrictions/Additional Instructions: As we discussed, continue plan for lithotripsy in July 18. You may return the emergency department for worsening or severe pain that is not controlled with [id number] or prescription pain medications, fevers, repetitive episodes of vomiting, or any other concerns you may have. Print Language: Pashto Coding Level of Care Code ED Pharmacy Benefits Coordinator for Kandice Sue
[2025-06-08 09:06] LABS: Hematocrit 45.1 % (37-53); Hemoglobin 15.60 g/dL (11.27-16.99); Mean Corpuscular HGB Conc 34.6 g/dL (30-55); Mean Corpuscular Hemoglobin 31.6 pg (27-33); Mean Corpuscular Volume 91.5 fl (82-101); Nucleated Red Blood Cells % 0 %; Platelet Count 255 10^3/cmm (157-399); Red Blood Count 4.93 10^6/uL (3.85-5.65); White Blood Count 7.33 10^3/uL (3.29-11.43)
[2025-06-08 09:11] LABS: Glucose Urine UA Negative (Normal); Nitrate Urine Negative (Negative); Specific Gravity, Urine 1.029 (1.005-1.030)
[2025-06-08 09:13] LABS: Add Urine Microscopic? YES
[2025-06-08 09:17] LABS: Alanine Aminotransferase 12 U/L (0-41); Albumin Level 4.2 g/dL (3.5-5.2); Alkaline Phosphatase 63 U/L (40-130); Anion Gap 16.4 (5-19); Aspartate Amino Transferase 11 U/L (0-40); Blood Urea Nitrogen 14 mg/dL (6-20); Calcium 9.2 mg/dL (8.5-10.5); Carbon Dioxide 26 mmol/L (22-29); Chloride 105 mmol/L (98-107); Creatinine Clr Calc Pharmacy 136.7395; Globulin 2.6 g/dL (1.3-4.6); Glucose 93 mg/dL (65-115); Osmolality Calculated 296 mOsm/kg (285-295); Potassium 4.4 mmol/L (3.5-5.1); Sodium 143 mmol/L (136-145); Total Protein 6.8 g/dL (6.6-8.7)
--- NOTE | 2025-06-08 09:18 | CT_ITS ---
WS: [id number] CT ABDOMEN PELVIS TECHNIQUE: Noncontrast CT of the abdomen and pelvis with coronal and sagittal reformatted images. CLINICAL INFORMATION: L back/abdominal pain; known stone COMPARISON: 2023 DLP: 787.[address] scans at [facility] use at least one of these dose optimization techniques: automated exposure control; mA and/or kV adjustment per patient size (includes targeted exams where dose is matched to clinical indication); or iterative reconstruction. FINDINGS: LEFT lower pole renal pelvic calculus measuring 13 mm. Probably associated partial obstruction with mild dilatation of the renal pelvis. Minimal inflammatory stranding about the LEFT kidney. LEFT ureter is patent. Additional nonobstructing LEFT calyceal tip calculi. No hydronephrosis in the RIGHT kidney. Normal noncontrast liver and spleen. Normal GE junction. Noncontrast pancreas otherwise normal in appearance. Adrenal glands are normal. Small fat-containing umbilical hernia. Normal caliber abdominal aorta. Normal sigmoid colon. Normal appendix. Diffuse bladder wall thickening with mild surrounding induration. Correlation for cystitis.2 small hazy groundglass opacities LEFT lower lobe. CT/CT kidney stone 54510 IMPRESSION: 1. LEFT renal pelvic calculus measuring 13 mm with likely partial or intermitt ent obstruction. Mild pelvicaliectasis with slight induration about the LEFT ki dney. Similar appearing renal pelvic calculus seen on the prior study in 2023. 2. No hydronephrosis in the RIGHT kidney. 3. Diffuse bladder wall thickening with mild surrounding induration suspicious for cystitis. Recommend correlation for UTI 4. Mild prostate enlargement with calcification. 5. Small fat-containing umbilical hernia. 6. A few wispy groundglass infiltrates in the LEFT lower lobe likely inflammat ory. 7. Induration along the RIGHT inguinal canal from recent reported hernia repai r Notified NICHOLAS Burroughs at 06/08/2025 10:06 AM.
[2025-06-08] MEDS: ondansetron 2 mg/ML SDV 2 mL 4 MG IVP (09:23)
[2025-06-08 09:24] VITALS: BP 122/77; PULSE 67; O2SAT 97
[2025-06-08 10:00] VITALS: BP 102/60; PULSE 62; O2SAT 96
[2025-06-08 11:06] VITALS: BP 126/92; PULSE 70; O2SAT 99
== END 2025-06-08 11:09 | disposition home or self-care (01) ==
PROVIDERS: Emergency Provider Physician Assistant; PCP Nurse Practitioner Family
DX: N20.0 Calculus of kidney (principal); Z72.0 Tobacco use; Z87.442 Personal history of urinary calculi
CPT/HCPCS: 36415; 74176; 80053; 81001; 85025; 87086; 96374; 96375; 99285; J1885; J2405